=== PATIENT | male | born 1950 | race Caucasian/White ===

== ENCOUNTER 2018-09-19 20:49 | Emergency (ER) | payer MEDICARE ==
[~2018-09-19] VITALS: Ht 195.6 cm; Wt 119.9 kg
[2018-09-19 21:24] LABS: BASOPHILS # (AUTO) 0.06 x10^3/uL (0-0.1); BASOPHILS % (AUTO) 1 % (0-1); EOSINOPHILS # (AUTO) 0.15 x10^3/uL (0-0.4); EOSINOPHILS % (AUTO) 2 % (1-7); LYMPHOCYTES # (AUTO) 1.88 x10^3/uL (1-3.4); LYMPHOCYTES % (AUTO) 26 % (22-44); MD NO; MEAN CORPUSCULAR HEMOGLOBIN 32.3 pg (27.5-34.5); MEAN CORPUSCULAR HGB CONC 33.7 g/dL (33.2-36.2); MEAN CORPUSCULAR VOLUME 95.8 fL (81-97); MEAN PLATELET VOLUME 8.7 fL (7.4-10.4); MONOCYTES # (AUTO) 0.35 x10^3/uL (0.2-0.8); MONOCYTES % (AUTO) 5 % (2-9); NEUTROPHILS # (AUTO) 4.72 x10^3/uL (1.8-6.8); NEUTROPHILS % (AUTO) 66 % (42-75); PLATELET COUNT 174 x10^3/uL (130-400); RED BLOOD COUNT 4.34 x10^6/uL (4.38-5.82); RED CELL DISTRIBUTION WIDTH 13.7 % (9.4-14.8)
[2018-09-19 21:36] LABS: ALBUMIN 3.7 g/dL (3.4-5.0); ANION GAP 7 mmol/L (5-15); CALCIUM 8.6 mg/dL (8.5-10.1); CHLORIDE 110 mmol/L (98-107)
[2018-09-19 21:39] LABS: CREATININE 1.22 mg/dL (0.7-1.3)
[2018-09-19 21:40] LABS: ALANINE AMINOTRANSFERASE 26 U/L (12-78); ALKALINE PHOSPHATASE 85 U/L (45-117); BILIRUBIN,TOTAL 0.6 mg/dL (0.2-1.0); TOTAL PROTEIN 6.7 g/dL (6.4-8.2)
[2018-09-19 22:20] LABS: MICROSCOPIC NOT IND
[2018-09-19 22:32] LABS: CULTURE INDICATED? NO
[2018-09-19 23:07] VITALS: BP 97/48
== END 2018-09-20 00:19 | disposition short-term general hospital (02) ==
LOC: ED 21:24
DX: F03.90 Unspecified dementia, unspecified severity, without behavioral disturbance, psychotic disturbance, mood disturbance, and anxiety (principal)
CPT/HCPCS: 36415; 80053; 81003; 85025; 99285

== ENCOUNTER 2019-02-03 16:40 | Inpatient (IN) | payer MEDICARE, MEDICAID ==
[~2019-02-03] VITALS: Ht 190.5 cm; Wt 121.8 kg
[2019-02-03] MEDS ORDERED: BISACODYL 10 MG SUPP PR PRN (18:00)
[2019-02-03] MEDS ORDERED: ONDANSETRON ODT 4 MG PO PRN (18:00)
[2019-02-03] MEDS ORDERED: DIVA500T2 PO ×2 (18:21)
[2019-02-03] MEDS ORDERED: ESTR1TAB15 PO (18:21)
[2019-02-03] MEDS ORDERED: TERA1CAP3 PO (18:21)
[2019-02-03] MEDS ORDERED: LISI-170 PO (18:21)
[2019-02-03] MEDS ORDERED: MULT-658 PO (18:21)
[2019-02-03] MEDS ORDERED: ZIPR20CA2 PO (18:21)
[2019-02-03] MEDS ORDERED: CARB200T PO (18:21)
[2019-02-03] MEDS ORDERED: LIDO5CRE6 TP (18:21)
[2019-02-03 19:48] VITALS: BP 111/69
[2019-02-03 20:00] VITALS: BP 111/69
[2019-02-03] MEDS: DIVALPROEX 250 MG TABLET.DR PO SCH (22:53)
[2019-02-03] MEDS: CARBAMAZEPINE 200 MG TABLET PO SCH (22:53)
[2019-02-03] MEDS: ZIPRASIDONE 40MG CAPSULE PO SCH (22:53)
[2019-02-04 05:46] LABS: BASOPHILS # (AUTO) 0.03 x10^3/uL (0-0.1); BASOPHILS % (AUTO) 1 % (0-1); EOSINOPHILS # (AUTO) 0.17 x10^3/uL (0-0.4); EOSINOPHILS % (AUTO) 4 % (1-7); LYMPHOCYTES # (AUTO) 2.41 x10^3/uL (1-3.4); LYMPHOCYTES % (AUTO) 51 % (22-44); MD NO; MEAN CORPUSCULAR HEMOGLOBIN 32.9 pg (27.5-34.5); MEAN CORPUSCULAR HGB CONC 34.8 g/dL (33.2-36.2); MEAN CORPUSCULAR VOLUME 94.4 fL (81-97); MEAN PLATELET VOLUME 8.8 fL (7.4-10.4); MONOCYTES # (AUTO) 0.39 x10^3/uL (0.2-0.8); MONOCYTES % (AUTO) 8 % (2-9); NEUTROPHILS # (AUTO) 1.76 x10^3/uL (1.8-6.8); NEUTROPHILS % (AUTO) 37 % (42-75); PLATELET COUNT 131 x10^3/uL (130-400); RED CELL DISTRIBUTION WIDTH 13.8 % (9.4-14.8)
[2019-02-04 05:51] LABS: ALANINE AMINOTRANSFERASE 17 U/L (12-78); ANION GAP 3 mmol/L (5-15); CALCIUM 8.1 mg/dL (8.5-10.1); CHLORIDE 110 mmol/L (98-107)
[2019-02-04 06:16] LABS: ALKALINE PHOSPHATASE 55 U/L (45-117); BILIRUBIN,TOTAL 0.5 mg/dL (0.2-1.0); CHOL/HDL RATIO 2.3; CHOLESTEROL, TOTAL 90 mg/dL (140-239); CREATININE 1.05 mg/dL (0.7-1.3); HDL CHOL % 44 % (26-37); HDL CHOLESTEROL (DIRECT) 40 mg/dL (40-60); LDL CHOLESTEROL,CALCULATED 36 mg/dL (54-169); LDL/HDL RATIO 0.9 (0.5-3.0); TOTAL PROTEIN 5.8 g/dL (6.4-8.2); TRIGLYCERIDES 68 mg/dL (50-200); VLDL CHOLESTEROL 14 mg/dL (0-25)
[2019-02-04 07:36] VITALS: BP 153/85
[2019-02-04] MEDS: DIVALPROEX 250 MG TABLET.DR PO SCH ×2 (08:27→20:11)
[2019-02-04] MEDS: CARBAMAZEPINE 200 MG TABLET PO SCH ×2 (08:28→20:11)
[2019-02-04] MEDS: ZIPRASIDONE 40MG CAPSULE PO SCH ×2 (08:28→20:12)
[2019-02-04] MEDS: ESTRADIOL 0.5 MG TABLET PO SCH (08:28)
[2019-02-04] MEDS: SENNA/DOCUSATE TABLET PO SCH (08:28)
[2019-02-04] MEDS ORDERED: ZIPRASIDONE 20 MG INJ IM ONE ×2 (18:40→19:00)
[2019-02-04 22:18] VITALS: BP 131/78
[2019-02-05] MEDS ORDERED: ZIPRASIDONE 20 MG INJ IM ONE ×4 (06:14→22:03)
[2019-02-05 07:26] VITALS: BP 137/79
[2019-02-05] MEDS: ZIPRASIDONE 40MG CAPSULE PO SCH ×2 (10:03→20:48)
[2019-02-05] MEDS: CARBAMAZEPINE 200 MG TABLET PO SCH ×2 (10:03→20:48)
[2019-02-05] MEDS: DIVALPROEX 250 MG TABLET.DR PO SCH ×2 (10:03→20:47)
[2019-02-05] MEDS: ESTRADIOL 0.5 MG TABLET PO SCH (10:03)
[2019-02-05] MEDS: SENNA/DOCUSATE TABLET PO SCH (10:04)
[2019-02-05 20:02] VITALS: BP 149/83
[2019-02-05] MEDS: LISINOPRIL 5 MG TABLET PO SCH (20:47)
[2019-02-06 07:28] VITALS: BP 147/73
[2019-02-06] MEDS: LISINOPRIL 5 MG TABLET PO SCH ×2 (09:56→21:36)
[2019-02-06] MEDS: CARBAMAZEPINE 200 MG TABLET PO SCH ×2 (09:56→21:36)
[2019-02-06] MEDS: SENNA/DOCUSATE TABLET PO SCH (09:56)
[2019-02-06] MEDS: DIVALPROEX 250 MG TABLET.DR PO SCH ×2 (09:56→21:36)
[2019-02-06] MEDS: ESTRADIOL 2 MG TABLET PO SCH (09:56)
[2019-02-06] MEDS: ZIPRASIDONE 40MG CAPSULE PO SCH ×2 (09:57→21:36)
[2019-02-06 12:28] LABS: ANION GAP 5 mmol/L (5-15); CALCIUM 8.4 mg/dL (8.5-10.1); CHLORIDE 112 mmol/L (98-107); CREATININE 1.17 mg/dL (0.7-1.3)
[2019-02-06] MEDS: ZIPRASIDONE 20MG CAPSULE PO SCH (16:42)
[2019-02-06] MEDS ORDERED: ZIPRASIDONE 20 MG INJ IM ONE ×2 (21:23→21:30)
[2019-02-06 22:00] VITALS: BP 109/69
[2019-02-07 06:36] LABS: ANION GAP 6 mmol/L (5-15); CALCIUM 8.6 mg/dL (8.5-10.1); CHLORIDE 108 mmol/L (98-107)
[2019-02-07 06:37] LABS: CREATININE 1.31 mg/dL (0.7-1.3)
[2019-02-07 07:39] VITALS: BP 150/91
[2019-02-07] MEDS: DIVALPROEX 250 MG TABLET.DR PO SCH ×2 (08:10→20:00)
[2019-02-07] MEDS: CARBAMAZEPINE 200 MG TABLET PO SCH ×2 (08:10→20:00)
[2019-02-07] MEDS: ESTRADIOL 2 MG TABLET PO SCH (08:10)
[2019-02-07] MEDS: SENNA/DOCUSATE TABLET PO SCH (08:10)
[2019-02-07] MEDS: LISINOPRIL 5 MG TABLET PO SCH (08:11)
[2019-02-07] MEDS: ZIPRASIDONE 20MG CAPSULE PO SCH ×2 (08:18→17:00)
[2019-02-07] MEDS ORDERED: ZIPRASIDONE 20MG CAPSULE PO ONE (13:00)
[2019-02-07 16:28] VITALS: BP 126/78
[2019-02-07 19:37] VITALS: BP 115/73
[2019-02-07] MEDS: ZIPRASIDONE 40MG CAPSULE PO SCH (20:00)
[2019-02-08 06:05] LABS: ANION GAP 4 mmol/L (5-15); CALCIUM 8.3 mg/dL (8.5-10.1); CHLORIDE 110 mmol/L (98-107); CREATININE 1.07 mg/dL (0.7-1.3)
[2019-02-08 07:39] VITALS: BP 114/69
[2019-02-08] MEDS: DIVALPROEX 250 MG TABLET.DR PO SCH ×2 (09:47→20:13)
[2019-02-08] MEDS: SENNA/DOCUSATE TABLET PO SCH (09:47)
[2019-02-08] MEDS: CARBAMAZEPINE 200 MG TABLET PO SCH ×2 (09:47→20:14)
[2019-02-08] MEDS: ESTRADIOL 2 MG TABLET PO SCH (09:47)
[2019-02-08] MEDS: ZIPRASIDONE 20MG CAPSULE PO SCH ×2 (09:51→16:32)
[2019-02-08 16:36] VITALS: BP 149/97
[2019-02-08] MEDS: ACETAMINOPHEN 325 MG TABLET PO PRN ×2 (16:40→20:49)
[2019-02-08 19:56] VITALS: BP 108/72
[2019-02-08] MEDS: ZIPRASIDONE 40MG CAPSULE PO SCH (20:13)
[2019-02-09 07:20] VITALS: BP 128/85
[2019-02-09] MEDS: DIVALPROEX 250 MG TABLET.DR PO SCH ×2 (08:40→20:12)
[2019-02-09] MEDS: SENNA/DOCUSATE TABLET PO SCH (08:40)
[2019-02-09] MEDS: ESTRADIOL 2 MG TABLET PO SCH (08:41)
[2019-02-09] MEDS: POLYETHYLENE GLYCOL 17 GM PACKET PO PRN (08:41)
[2019-02-09] MEDS: CARBAMAZEPINE 200 MG TABLET PO SCH ×2 (08:44→20:12)
[2019-02-09] MEDS: ZIPRASIDONE 20MG CAPSULE PO SCH ×2 (08:46→17:19)
[2019-02-09 17:20] VITALS: BP 120/77
[2019-02-09 19:12] VITALS: BP 124/77
[2019-02-09] MEDS: ZIPRASIDONE 40MG CAPSULE PO SCH (20:12)
[2019-02-10 07:37] VITALS: BP 105/69
[2019-02-10] MEDS: SENNA/DOCUSATE TABLET PO SCH (08:48)
[2019-02-10] MEDS: ESTRADIOL 2 MG TABLET PO SCH (08:49)
[2019-02-10] MEDS: ACETAMINOPHEN 325 MG TABLET PO PRN (08:49)
[2019-02-10] MEDS: CARBAMAZEPINE 200 MG TABLET PO SCH ×2 (08:50→20:24)
[2019-02-10] MEDS: DIVALPROEX 250 MG TABLET.DR PO SCH ×2 (08:50→20:24)
[2019-02-10] MEDS: ZIPRASIDONE 20MG CAPSULE PO SCH ×2 (08:53→16:02)
[2019-02-10 08:58] VITALS: BP 132/74
[2019-02-10 16:01] VITALS: BP 129/70
[2019-02-10] MEDS ORDERED: LORazepam 1MG TABLET ONE (18:28)
[2019-02-10] MEDS ORDERED: LORazepam 1MG TABLET PO ONE (18:30)
[2019-02-10] MEDS ORDERED: LORazepam 2 MG/ML, 1ML ONE (18:32)
[2019-02-10] MEDS: ZIPRASIDONE 40MG CAPSULE PO SCH (20:24)
[2019-02-10 20:32] VITALS: BP 112/69
[2019-02-11 07:34] VITALS: BP 139/87
[2019-02-11] MEDS: ESTRADIOL 2 MG TABLET PO SCH (08:31)
[2019-02-11] MEDS: CARBAMAZEPINE 200 MG TABLET PO SCH ×2 (08:31→19:59)
[2019-02-11] MEDS: SENNA/DOCUSATE TABLET PO SCH (08:31)
[2019-02-11] MEDS: DIVALPROEX 250 MG TABLET.DR PO SCH ×2 (08:31→19:59)
[2019-02-11] MEDS: ZIPRASIDONE 20MG CAPSULE PO SCH ×3 (08:38→19:59)
[2019-02-11 16:30] VITALS: BP 114/73
[2019-02-11] MEDS: LORazepam 2 MG/ML, 1ML IM PRN (18:42)
[2019-02-11 19:42] VITALS: BP 112/73
[2019-02-11] MEDS: ZIPRASIDONE 40MG CAPSULE PO SCH (19:59)
[2019-02-12] MEDS: LORazepam 2 MG/ML, 1ML IM PRN (05:58)
[2019-02-12] MEDS ORDERED: LORazepam 2 MG/ML, 1ML IM PRN (06:00)
[2019-02-12 07:18] VITALS: BP 111/71
[2019-02-12] MEDS: SENNA/DOCUSATE TABLET PO SCH (09:47)
[2019-02-12] MEDS: ESTRADIOL 2 MG TABLET PO SCH (09:47)
[2019-02-12] MEDS: DIVALPROEX 250 MG TABLET.DR PO SCH ×2 (09:47→20:03)
[2019-02-12] MEDS: POLYETHYLENE GLYCOL 17 GM PACKET PO PRN (09:47)
[2019-02-12] MEDS: CARBAMAZEPINE 200 MG TABLET PO SCH ×2 (09:47→20:03)
[2019-02-12] MEDS: ZIPRASIDONE 20MG CAPSULE PO SCH ×3 (09:49→20:03)
[2019-02-12 19:54] VITALS: BP 119/78
[2019-02-12] MEDS: ZIPRASIDONE 40MG CAPSULE PO SCH (20:03)
[2019-02-13] MEDS: ESTRADIOL 2 MG TABLET PO SCH (08:08)
[2019-02-13] MEDS: SENNA/DOCUSATE TABLET PO SCH (08:09)
[2019-02-13] MEDS: DIVALPROEX 250 MG TABLET.DR PO SCH ×2 (08:09→19:25)
[2019-02-13] MEDS: CARBAMAZEPINE 200 MG TABLET PO SCH ×2 (08:09→19:25)
[2019-02-13] MEDS: ZIPRASIDONE 20MG CAPSULE PO SCH ×3 (08:09→19:25)
[2019-02-13] MEDS ORDERED: LORazepam 2 MG/ML, 1ML IM ONE (12:30)
[2019-02-13 17:08] VITALS: BP 151/88
[2019-02-13] MEDS ORDERED: HALOPERIDOL 5 MG/ML ONE (18:23)
[2019-02-13] MEDS ORDERED: HALOPERIDOL 5 MG/ML IM PRN (18:30)
[2019-02-13 18:32] VITALS: BP 123/75
[2019-02-13] MEDS: ZIPRASIDONE 40MG CAPSULE PO SCH (19:25)
[2019-02-13 19:47] VITALS: BP 119/82
[2019-02-14 08:18] VITALS: BP 119/92
[2019-02-14] MEDS: DIVALPROEX 250 MG TABLET.DR PO SCH ×2 (10:12→22:13)
[2019-02-14] MEDS: CARBAMAZEPINE 200 MG TABLET PO SCH ×2 (10:13→22:14)
[2019-02-14] MEDS: ESTRADIOL 2 MG TABLET PO SCH (10:13)
[2019-02-14] MEDS: SENNA/DOCUSATE TABLET PO SCH (10:13)
[2019-02-14] MEDS: ZIPRASIDONE 20MG CAPSULE PO SCH ×2 (10:14→22:14)
[2019-02-14] MEDS ORDERED: LORazepam 2 MG/ML, 1ML IM ONE (16:30)
[2019-02-14] MEDS ORDERED: ZIPRASIDONE 20 MG INJ IM ONE ×3 (16:38→21:30)
[2019-02-15 07:45] VITALS: BP 125/77
[2019-02-15] MEDS: DIVALPROEX 250 MG TABLET.DR PO SCH ×2 (08:15→20:30)
[2019-02-15] MEDS: ESTRADIOL 2 MG TABLET PO SCH (08:15)
[2019-02-15] MEDS: ZIPRASIDONE 20MG CAPSULE PO SCH ×2 (08:16→20:29)
[2019-02-15] MEDS: SENNA/DOCUSATE TABLET PO SCH (08:16)
[2019-02-15] MEDS: CARBAMAZEPINE 200 MG TABLET PO SCH ×2 (08:17→20:30)
[2019-02-15 16:38] VITALS: BP 109/71
[2019-02-15] MEDS ORDERED: DIAZEPAM 5 MG/ML, 2ML IM ONE (18:00)
[2019-02-15] MEDS ORDERED: ZIPRASIDONE 20 MG INJ IM ONE ×2 (18:37→19:00)
[2019-02-15 20:00] VITALS: BP 99/57
[2019-02-16] MEDS: LORazepam 2 MG/ML, 1ML IM PRN ×2 (01:30→23:45)
[2019-02-16 07:55] VITALS: BP 117/79
[2019-02-16] MEDS: CARBAMAZEPINE 200 MG TABLET PO SCH ×2 (08:45→20:02)
[2019-02-16] MEDS: SENNA/DOCUSATE TABLET PO SCH (08:45)
[2019-02-16] MEDS: ESTRADIOL 2 MG TABLET PO SCH (08:45)
[2019-02-16] MEDS: DIVALPROEX 250 MG TABLET.DR PO SCH ×2 (08:46→20:01)
[2019-02-16] MEDS: ZIPRASIDONE 20MG CAPSULE PO SCH ×2 (08:46→20:01)
[2019-02-16 11:33] VITALS: BP 88/58
[2019-02-16 12:56] VITALS: BP 108/70
[2019-02-16] MEDS ORDERED: LORazepam 2 MG/ML, 1ML IM PRN (17:30)
[2019-02-16 20:00] VITALS: BP 146/81
[2019-02-17 07:40] VITALS: BP_SYST 103; BP_SYST 160; BP_DIAS 69; BP_DIAS 70
[2019-02-17] MEDS ORDERED: LORazepam 2 MG/ML, 1ML IM ONE (08:30)
[2019-02-17] MEDS: CARBAMAZEPINE 200 MG TABLET PO SCH ×2 (09:59→20:23)
[2019-02-17] MEDS: ESTRADIOL 2 MG TABLET PO SCH (10:01)
[2019-02-17] MEDS: DIVALPROEX 250 MG TABLET.DR PO SCH (10:01)
[2019-02-17] MEDS: SENNA/DOCUSATE TABLET PO SCH (10:01)
[2019-02-17] MEDS: ZIPRASIDONE 20MG CAPSULE PO SCH (10:01)
[2019-02-17 10:10] VITALS: BP 139/86
[2019-02-17 16:09] VITALS: BP 113/79
[2019-02-17] MEDS: VALPROATE SODIUM 250 MG/5 ML ORAL SOLN PO SCH ×2 (16:28→20:24)
[2019-02-17] MEDS: HALOPERIDOL 2 MG/ML ORAL SOL PO SCH ×2 (17:40→20:24)
[2019-02-17 20:08] VITALS: BP 117/80
[2019-02-18] MEDS ORDERED: LORazepam 2 MG/ML, 1ML IM PRN (00:30)
[2019-02-18 07:12] VITALS: BP 152/92
[2019-02-18] MEDS: ESTRADIOL 2 MG TABLET PO SCH (08:20)
[2019-02-18] MEDS: POLYETHYLENE GLYCOL 17 GM PACKET PO PRN (08:20)
[2019-02-18] MEDS: SENNA/DOCUSATE TABLET PO SCH (08:20)
[2019-02-18] MEDS: HALOPERIDOL 2 MG/ML ORAL SOL PO SCH ×3 (08:21→19:59)
[2019-02-18] MEDS: VALPROATE SODIUM 250 MG/5 ML ORAL SOLN PO SCH ×3 (08:21→20:48)
[2019-02-18] MEDS: CARBAMAZEPINE 200 MG TABLET PO SCH ×2 (08:21→19:59)
[2019-02-18] MEDS ORDERED: LORazepam 2 MG/ML, 1ML IM ONE (09:00)
[2019-02-18 19:45] VITALS: BP 147/88
[2019-02-19] MEDS ORDERED: OLANZAPINE 10 MG INJ IM ONE (04:30)
[2019-02-19 07:45] VITALS: BP 149/88
[2019-02-19] MEDS: VALPROATE SODIUM 250 MG/5 ML ORAL SOLN PO SCH ×3 (09:18→20:02)
[2019-02-19] MEDS: HALOPERIDOL 2 MG/ML ORAL SOL PO SCH ×3 (09:18→20:02)
[2019-02-19] MEDS: SENNA/DOCUSATE TABLET PO SCH (09:19)
[2019-02-19] MEDS: CARBAMAZEPINE 200 MG TABLET PO SCH ×2 (09:19→20:01)
[2019-02-19] MEDS: ESTRADIOL 2 MG TABLET PO SCH (09:19)
[2019-02-19 15:05] VITALS: BP 147/74
[2019-02-19] MEDS: BUPRENORPHINE/NALOXONE 2-0.5MG SL SCH (15:14)
[2019-02-19 19:46] VITALS: BP 153/87
[2019-02-19] MEDS: POLYETHYLENE GLYCOL 17 GM PACKET PO PRN (21:46)
[2019-02-20 07:49] VITALS: BP 149/77
[2019-02-20] MEDS: CARBAMAZEPINE 200 MG TABLET PO SCH ×2 (08:34→20:39)
[2019-02-20] MEDS: SENNA/DOCUSATE TABLET PO SCH (08:35)
[2019-02-20] MEDS: ESTRADIOL 2 MG TABLET PO SCH (08:35)
[2019-02-20] MEDS: BUPRENORPHINE/NALOXONE 2-0.5MG SL SCH (08:35)
[2019-02-20] MEDS: VALPROATE SODIUM 250 MG/5 ML ORAL SOLN PO SCH ×2 (08:36→20:38)
[2019-02-20] MEDS: HALOPERIDOL 2 MG/ML ORAL SOL PO SCH ×3 (08:36→20:38)
[2019-02-20 14:59] VITALS: BP 143/85
[2019-02-20 20:21] VITALS: BP 131/77
[2019-02-21 07:11] VITALS: BP 119/80
[2019-02-21] MEDS: SENNA/DOCUSATE TABLET PO SCH (08:04)
[2019-02-21] MEDS: CARBAMAZEPINE 200 MG TABLET PO SCH ×2 (08:04→20:18)
[2019-02-21] MEDS: ESTRADIOL 2 MG TABLET PO SCH (08:04)
[2019-02-21] MEDS: BUPRENORPHINE/NALOXONE 2-0.5MG SL SCH (08:04)
[2019-02-21] MEDS: VALPROATE SODIUM 250 MG/5 ML ORAL SOLN PO SCH ×2 (08:06→20:19)
[2019-02-21] MEDS: HALOPERIDOL 2 MG/ML ORAL SOL PO SCH ×3 (08:07→20:19)
[2019-02-21] MEDS ORDERED: LORazepam 2 MG/ML, 1ML IM STA (16:14)
[2019-02-21 20:00] VITALS: BP 116/75
[2019-02-22] VITALS (13 sets, daily range): BP systolic 117–154; BP diastolic 69–89
[2019-02-22] MEDS ORDERED: LORazepam 2 MG/ML, 1ML IM PRN (03:00)
[2019-02-22] MEDS: LORazepam 2 MG/ML, 1ML IM PRN (03:01)
--- NOTE | 2019-02-22 08:18 | NUR ---
ELBERT PEDRO - Fall Risk Medications present and NOT receiving anticoagulants. Signed: 02/22/19 at 0819 by Dean SIMON
[2019-02-22] MEDS: VALPROATE SODIUM 250 MG/5 ML ORAL SOLN PO SCH ×2 (11:00→21:11)
[2019-02-22] MEDS: ESTRADIOL 2 MG TABLET PO SCH (11:01)
[2019-02-22] MEDS: CARBAMAZEPINE 200 MG TABLET PO SCH ×2 (11:02→20:58)
[2019-02-22] MEDS: SENNA/DOCUSATE TABLET PO SCH (11:02)
[2019-02-22] MEDS: HALOPERIDOL 2 MG/ML ORAL SOL PO SCH ×3 (11:02→20:59)
[2019-02-22] MEDS: BUPRENORPHINE/NALOXONE 2-0.5MG SL SCH (11:03)
[2019-02-22] MEDS ORDERED: LORazepam 2 MG/ML, 1ML IM ONE (14:30)
[2019-02-22] MEDS ORDERED: ZIPRASIDONE 20 MG INJ IM STA (17:01)
[2019-02-22] MEDS ORDERED: ZIPRASIDONE 20 MG INJ IM ONE (17:01)
[2019-02-23 07:22] VITALS: BP 123/83
[2019-02-23] MEDS: SENNA/DOCUSATE TABLET PO SCH (08:41)
[2019-02-23] MEDS: HALOPERIDOL 2 MG/ML ORAL SOL PO SCH ×3 (08:41→20:07)
[2019-02-23] MEDS: CARBAMAZEPINE 200 MG TABLET PO SCH ×2 (08:41→20:07)
[2019-02-23] MEDS: ESTRADIOL 2 MG TABLET PO SCH (08:41)
[2019-02-23] MEDS: VALPROATE SODIUM 250 MG/5 ML ORAL SOLN PO SCH ×2 (08:41→20:05)
[2019-02-23] MEDS: ACETAMINOPHEN 325 MG TABLET PO PRN (15:29)
[2019-02-23 20:00] VITALS: BP 136/65
[2019-02-24] MEDS ORDERED: OLANZAPINE 10 MG INJ IM ONE (02:00)
[2019-02-24] MEDS: HALOPERIDOL 2 MG/ML ORAL SOL PO SCH (09:04)
[2019-02-24] MEDS: VALPROATE SODIUM 250 MG/5 ML ORAL SOLN PO SCH ×2 (09:05→20:00)
[2019-02-24] MEDS: SENNA/DOCUSATE TABLET PO SCH (09:06)
[2019-02-24] MEDS: CARBAMAZEPINE 200 MG TABLET PO SCH ×2 (09:07→19:59)
[2019-02-24] MEDS: ESTRADIOL 2 MG TABLET PO SCH (09:07)
[2019-02-24] MEDS: HALOPERIDOL 5 MG TABLET PO SCH ×2 (15:21→20:00)
[2019-02-24] MEDS: ACETAMINOPHEN 325 MG TABLET PO PRN (16:47)
[2019-02-24] MEDS ORDERED: LORazepam 1MG TABLET PO ONE (18:00)
[2019-02-24 20:23] VITALS: BP 118/79
[2019-02-25 07:32] VITALS: BP 133/75
[2019-02-25] MEDS: SENNA/DOCUSATE TABLET PO SCH (09:47)
[2019-02-25] MEDS: HALOPERIDOL 5 MG TABLET PO SCH (09:47)
[2019-02-25] MEDS: VALPROATE SODIUM 250 MG/5 ML ORAL SOLN PO SCH ×2 (09:47→19:43)
[2019-02-25] MEDS: ESTRADIOL 2 MG TABLET PO SCH (09:47)
[2019-02-25] MEDS: CARBAMAZEPINE 200 MG TABLET PO SCH ×2 (09:48→19:44)
[2019-02-25] MEDS ORDERED: LORazepam 1MG TABLET PO PRN (12:00)
[2019-02-25] MEDS ORDERED: LORazepam 1MG TABLET ONE (12:00)
[2019-02-25 19:53] VITALS: BP 136/83
[2019-02-26] MEDS: VALPROATE SODIUM 250 MG/5 ML ORAL SOLN PO SCH ×2 (08:12→19:46)
[2019-02-26] MEDS: SENNA/DOCUSATE TABLET PO SCH (08:12)
[2019-02-26] MEDS: CARBAMAZEPINE 200 MG TABLET PO SCH ×2 (08:12→19:45)
[2019-02-26] MEDS: ESTRADIOL 2 MG TABLET PO SCH (08:12)
[2019-02-26 09:00] VITALS: BP 106/74
[2019-02-26 17:01] VITALS: BP 104/67
[2019-02-26 19:42] VITALS: BP 106/72
[2019-02-26] MEDS: ACETAMINOPHEN 325 MG TABLET PO PRN (20:38)
[2019-02-27 07:50] VITALS: BP 129/83
[2019-02-27] MEDS: VALPROATE SODIUM 250 MG/5 ML ORAL SOLN PO SCH ×2 (09:19→20:07)
[2019-02-27] MEDS: SENNA/DOCUSATE TABLET PO SCH (09:19)
[2019-02-27] MEDS: CARBAMAZEPINE 200 MG TABLET PO SCH ×2 (09:20→20:08)
[2019-02-27] MEDS: ESTRADIOL 2 MG TABLET PO SCH (09:20)
[2019-02-27 10:23] VITALS: BP 129/83
[2019-02-27] MEDS: ACETAMINOPHEN 325 MG TABLET PO PRN (11:39)
[2019-02-27 16:50] VITALS: BP 112/72
[2019-02-28 07:30] VITALS: BP 139/75
[2019-02-28] MEDS: ESTRADIOL 2 MG TABLET PO SCH (09:52)
[2019-02-28] MEDS: CARBAMAZEPINE 200 MG TABLET PO SCH ×2 (09:52→20:16)
[2019-02-28] MEDS: SENNA/DOCUSATE TABLET PO SCH (09:52)
[2019-02-28] MEDS: VALPROATE SODIUM 250 MG/5 ML ORAL SOLN PO SCH ×2 (09:53→20:16)
[2019-02-28] MEDS: ACETAMINOPHEN 325 MG TABLET PO PRN (14:28)
[2019-02-28 16:15] VITALS: BP 121/80
[2019-03-01 07:35] VITALS: BP 129/78
[2019-03-01] MEDS: ESTRADIOL 2 MG TABLET PO SCH (08:09)
[2019-03-01] MEDS: VALPROATE SODIUM 250 MG/5 ML ORAL SOLN PO SCH ×2 (08:09→20:06)
[2019-03-01] MEDS: SENNA/DOCUSATE TABLET PO SCH (08:09)
[2019-03-01] MEDS: CARBAMAZEPINE 200 MG TABLET PO SCH ×2 (08:09→20:05)
[2019-03-01 15:06] VITALS: BP 108/70
[2019-03-01] MEDS: POLYETHYLENE GLYCOL 17 GM PACKET PO PRN (18:22)
[2019-03-01] MEDS: ACETAMINOPHEN 325 MG TABLET PO PRN (18:26)
[2019-03-01 19:35] VITALS: BP 110/75
[2019-03-02] MEDS: CARBAMAZEPINE 200 MG TABLET PO SCH ×2 (09:38→20:12)
[2019-03-02] MEDS: SENNA/DOCUSATE TABLET PO SCH (09:38)
[2019-03-02] MEDS: POLYETHYLENE GLYCOL 17 GM PACKET PO PRN (09:39)
[2019-03-02] MEDS: ESTRADIOL 2 MG TABLET PO SCH (09:39)
[2019-03-02] MEDS: ACETAMINOPHEN 325 MG TABLET PO PRN ×2 (09:39→14:10)
[2019-03-02] MEDS: VALPROATE SODIUM 250 MG/5 ML ORAL SOLN PO SCH ×2 (09:40→20:12)
[2019-03-02 12:39] VITALS: BP 120/69
[2019-03-02 19:34] VITALS: BP 117/76
[2019-03-03 07:33] VITALS: BP 116/63
[2019-03-03] MEDS: SENNA/DOCUSATE TABLET PO SCH (08:38)
[2019-03-03] MEDS: CARBAMAZEPINE 200 MG TABLET PO SCH ×2 (08:38→20:37)
[2019-03-03] MEDS: ESTRADIOL 2 MG TABLET PO SCH (08:38)
[2019-03-03] MEDS: VALPROATE SODIUM 250 MG/5 ML ORAL SOLN PO SCH ×2 (08:39→20:53)
[2019-03-03 20:00] VITALS: BP 125/81
[2019-03-03] MEDS: POLYETHYLENE GLYCOL 17 GM PACKET PO PRN (20:38)
[2019-03-03] MEDS: ACETAMINOPHEN 325 MG TABLET PO PRN (20:53)
[2019-03-04 07:08] VITALS: BP 131/87
[2019-03-04] MEDS: CARBAMAZEPINE 200 MG TABLET PO SCH ×2 (08:08→20:35)
[2019-03-04] MEDS: SENNA/DOCUSATE TABLET PO SCH ×2 (08:09→08:17)
[2019-03-04] MEDS: ESTRADIOL 2 MG TABLET PO SCH (08:09)
[2019-03-04] MEDS: VALPROATE SODIUM 250 MG/5 ML ORAL SOLN PO SCH ×2 (08:09→20:35)
[2019-03-04 16:32] VITALS: BP 134/87
[2019-03-04 19:59] VITALS: BP 143/91
[2019-03-05 07:18] VITALS: BP 125/70
[2019-03-05] MEDS: ESTRADIOL 2 MG TABLET PO SCH (10:08)
[2019-03-05] MEDS: CARBAMAZEPINE 200 MG TABLET PO SCH ×2 (10:08→20:04)
[2019-03-05] MEDS: SENNA/DOCUSATE TABLET PO SCH (10:08)
[2019-03-05] MEDS: VALPROATE SODIUM 250 MG/5 ML ORAL SOLN PO SCH ×2 (10:10→20:04)
[2019-03-05 16:06] VITALS: BP 123/83
[2019-03-05] MEDS: LORazepam 1MG TABLET PO PRN (17:47)
[2019-03-05 19:53] VITALS: BP 147/84
[2019-03-06] MEDS: LORazepam 1MG TABLET PO PRN ×2 (05:29→13:29)
[2019-03-06 07:39] VITALS: BP 131/80
[2019-03-06] MEDS: SENNA/DOCUSATE TABLET PO SCH (10:44)
[2019-03-06] MEDS: ESTRADIOL 2 MG TABLET PO SCH (10:44)
[2019-03-06] MEDS: CARBAMAZEPINE 200 MG TABLET PO SCH ×2 (10:44→20:14)
[2019-03-06] MEDS: VALPROATE SODIUM 250 MG/5 ML ORAL SOLN PO SCH ×2 (10:44→20:14)
[2019-03-06 15:51] VITALS: BP 136/88
[2019-03-06 19:32] VITALS: BP 134/86
[2019-03-07] MEDS: LORazepam 1MG TABLET PO PRN (04:29)
[2019-03-07 07:49] VITALS: BP 141/83
[2019-03-07] MEDS: ESTRADIOL 2 MG TABLET PO SCH (10:10)
[2019-03-07] MEDS: SENNA/DOCUSATE TABLET PO SCH (10:10)
[2019-03-07] MEDS: CARBAMAZEPINE 200 MG TABLET PO SCH ×2 (10:10→20:40)
[2019-03-07] MEDS: VALPROATE SODIUM 250 MG/5 ML ORAL SOLN PO SCH ×2 (10:13→20:40)
[2019-03-07 14:53] VITALS: BP 140/79
[2019-03-07 19:30] VITALS: BP 120/76
[2019-03-08] MEDS: ESTRADIOL 2 MG TABLET PO SCH (09:00)
[2019-03-08] MEDS: VALPROATE SODIUM 250 MG/5 ML ORAL SOLN PO SCH ×2 (09:00→22:07)
[2019-03-08] MEDS: CARBAMAZEPINE 200 MG TABLET PO SCH ×2 (09:01→21:00)
[2019-03-08] MEDS: SENNA/DOCUSATE TABLET PO SCH (09:01)
[2019-03-08] MEDS: LORazepam 2 MG/ML, 1ML IM ONE ×2 (10:30→10:34)
[2019-03-08] MEDS: ACETAMINOPHEN 325 MG TABLET PO PRN ×2 (11:08→17:49)
[2019-03-08] MEDS: LORazepam 1MG TABLET PO PRN (11:08)
[2019-03-08] MEDS ORDERED: LORazepam 1MG TABLET PO PRN (18:00)
[2019-03-08 19:35] VITALS: BP 113/75
[2019-03-09] MEDS: LORazepam 1MG TABLET PO PRN ×3 (02:03→21:31)
[2019-03-09] MEDS: VALPROATE SODIUM 250 MG/5 ML ORAL SOLN PO SCH ×2 (08:41→20:12)
[2019-03-09] MEDS: SENNA/DOCUSATE TABLET PO SCH (08:42)
[2019-03-09] MEDS: CARBAMAZEPINE 200 MG TABLET PO SCH ×2 (08:42→20:19)
[2019-03-09] MEDS: ESTRADIOL 2 MG TABLET PO SCH (08:42)
[2019-03-09] MEDS ORDERED: CHLO25TA4 PO ×2 (16:48)
[2019-03-09] MEDS ORDERED: HYDR-3341 PO (16:48)
[2019-03-09] MEDS ORDERED: CARB200T4 PO (16:48)
[2019-03-09] MEDS ORDERED: VALP250S PO (16:48)
[2019-03-09] MEDS ORDERED: ESTR2TAB PO (16:48)
[2019-03-09 19:50] VITALS: BP 130/90
[2019-03-10] MEDS: SENNA/DOCUSATE TABLET PO SCH (08:25)
[2019-03-10] MEDS: ESTRADIOL 2 MG TABLET PO SCH (08:25)
[2019-03-10] MEDS: CARBAMAZEPINE 200 MG TABLET PO SCH (08:25)
[2019-03-10] MEDS: VALPROATE SODIUM 250 MG/5 ML ORAL SOLN PO SCH (08:25)
[2019-03-10 08:27] VITALS: BP 122/83
== END 2019-03-10 13:20 | DRG 884 ==
LOC: 3E 19:11
PROVIDERS: ADMIT Psychiatry & Neurology Psychosomatic Medicine; ATTEND Psychiatry & Neurology Psychosomatic Medicine
DX: F01.51 Vascular dementia, unspecified severity, with behavioral disturbance (principal); F02.81 Dementia in other diseases classified elsewhere, unspecified severity, with behavioral disturbance; G30.9 Alzheimer's disease, unspecified; E66.9 Obesity, unspecified; Z68.33 Body mass index [BMI] 33.0-33.9, adult; F25.9 Schizoaffective disorder, unspecified; G47.00 Insomnia, unspecified; I10 Essential (primary) hypertension; K21.9 Gastro-esophageal reflux disease without esophagitis; N40.0 Benign prostatic hyperplasia without lower urinary tract symptoms; R32 Unspecified urinary incontinence; Z79.899 Other long term (current) drug therapy; Z87.891 Personal history of nicotine dependence
CPT/HCPCS: 36415; 70450; 80048; 80053; 80061; 82607; 84439; 84443; 85025; 86592; 93005; J3360; J3486; 92522-GN; J1630; J2060

== ENCOUNTER 2019-05-22 20:16 | Emergency (ER) | payer MEDICARE, MEDICAID ==
[~2019-05-22] VITALS: Ht 188 cm; Wt 100.0 kg
[~2019-05-22 20:16] MED LIST: CARB200T PO; CARB200T4 PO; CHLO25TA4 PO; DIVA500T2 PO; ESTR1TAB15 PO; ESTR2TAB PO; HYDR-3341 PO; LIDO5CRE6 TP; LISI-170 PO; MULT-658 PO; TERA1CAP3 PO; VALP250S PO; ZIPR20CA2 PO
--- NOTE | 2019-05-22 20:33 | NUR ---
Pt BIB EMS from [facility] for GLF from standing. No LOC. Minor abrasion to R elbow. No trauma to head noted. Pt AAOx1 at baseline and at this time. Follows basic commands. Per staff, pt was very agitated after fall and tried to hit staff. Pt incont to urine. VSS.
--- NOTE | 2019-05-22 20:45 | NUR ---
Pt changed to clean sheets and cleaned genital area.
[2019-05-22] MEDS ORDERED: PANT40TA3 PO (20:57)
[2019-05-22] MEDS ORDERED: HALO10TA PO (20:57)
--- NOTE | 2019-05-22 21:45 | NUR ---
needs [facility] transfer brianna cruz is calling [facility] now
--- NOTE | 2019-05-22 22:05 | NUR ---
attempted to call [facility] to give report. they still have not answered, called 3x now.
--- NOTE | 2019-05-22 22:32 | NUR ---
NO ANSWER FROM [facility] ( CALLED x2 BY TANYA RN AND CALLED X3 BY ROSSY RN ) FINALLY CALLED [facility] PT IS TRNASFERRED TO THE PLACE THAT PT CAME FROM [facility] GIVEN REPORT TO [facility] WHAT'S EVENT WAS HAPPENED TO PT VSScott STABLE
[2019-05-22 22:33] VITALS: BP 125/89
== END 2019-05-22 22:36 | disposition home or self-care (01) ==
LOC: ED 22:07
DX: S39.012A Strain of muscle, fascia and tendon of lower back, initial encounter (principal); S50.01XA Contusion of right elbow, initial encounter; W18.30XA Fall on same level, unspecified, initial encounter; Y93.89 Activity, other specified; Y92.009 Unspecified place in unspecified non-institutional (private) residence as the place of occurrence of the external cause; Y99.8 Other external cause status
CPT/HCPCS: 72110; 99283